=== PATIENT | female | born 1930 | race Caucasian/White ===

== ENCOUNTER → 2018-05-10 | Outpatient (CLI) | payer MEDICARE | END | disposition home or self-care (01) | LOC: PCVCCLINIC 14:59 | PROVIDERS: ATTEND Internal Medicine | DX: I34.0 Nonrheumatic mitral (valve) insufficiency (principal); I10 Essential (primary) hypertension; I63.9 Cerebral infarction, unspecified; I95.1 Orthostatic hypotension; E03.9 Hypothyroidism, unspecified | CPT/HCPCS: 93005; G0463 ==

== ENCOUNTER → 2018-11-01 | Outpatient (CLI) | payer MEDICARE ==
--- NOTE | 2018-11-01 16:57 | PCVCIMAG ---
APPROVED REPORT Study performed: 11/01/2018 14:07:17 EXAM: Comprehensive 2D, Doppler, and color-flow Echocardiogram Patient Location: Echo lab Status: routine BSA: 1.67 HR: 70 bpmBP: 110/70 mmHg Rhythm: NSR Other Information Study Quality: Adequate Risk Factors: Cardiac Risk Factors: HTN Indications CVA/TIA Syncope severe mitral regurgitation 2D Dimensions IVSd: 13.15 (7-11mm)LVOT Diam: 20.87 (18-24mm) LVDd: 50.52 mm PWd: 12.98 (7-11mm)Ascending Ao: 35.79 (22-36mm) LVDs: 35.54 (25-40mm) Left Atrium: 38.42 (27-40mm) Aortic Root: 34.39 mm LV Single Plane 4CH: 48.89 % LV Single Plane 2CH: 40.77 % Biplane EF: 43.7 % Volumes Left Atrial Volume (Systole) Single Plane 4CH: 90.19 mLSingle Plane 2CH: 86.66 mL LA ESV Index: 45.00 mL/m2 Aortic Valve AoV Peak Ray.: 1.85 m/s AO Peak Gr.: 13.64 mmHgLVOT Max P.37 mmHg AO Mean Gr.: 6.75 mmHgLVOT Mean P.18 mmHg AO V2 Mean: 1.20 m/sLVOT Max V: 0.77 m/s AO V2 VTI: 45.84 cmLVOT Mean V: 0.52 m/s JAVED (VTI): 1.24 [id number] V1 VTI: 16.67 cm JAVED Vmax: 1.43 cm2 SV (LVOT): 56.96 mL Mitral Valve E/A Ratio: 1.0 MV Decel. Time: 221.18 ms MV E Max Ray.: 0.58 m/s MV A Ray.: 0.59 m/s IVRT: 121.11 ms Pulmonary Valve PV Peak Ray.: 0.95 m/sPV Peak Gr.: 3.62 mmHg Pulmonary Vein P Vein S: 0.27 m/sP Vein A: 0.46 m/s P Vein D: 0.35 m/sP Vein A Dur.: 152.2 msec P Vein S/D Ratio: 0.77 Tricuspid Valve TR Peak Ray.: 2.29 m/s TR Peak Gr.: 20.94 mmHg Left Ventricle The left ventricle is normal size. There is normal LV segmental wall motion. Mild concentric left ventricular hypertrophy. Left ventricular systolic function is at the lower limits of normal LVEF is 50-55%. Grade I - abnormal relaxation pattern. Right Ventricle The right ventricle is normal size. The right ventricular systolic function is normal. Atria Left atrium is mildly dilated. The right atrium size is normal. Aortic Valve The aortic valve is moderately sclerotic. No aortic regurgitation is present. There is very mild aortic valvular stenosis. Calculated aortic valve area is 1.4 cm2 with maximum pressure gradient of 14 mmHg and mean pressure gradient of 7 mmHg. Mitral Valve Moderate mitral annular calcification, posterior leaflet prolapse Moderately severe mitral regurgitation No evidence of mitral valve stenosis. Tricuspid Valve The tricuspid valve is normal in structure. Mild tricuspid regurgitation with PAP of 28 mmHg. Pulmonic Valve The pulmonary valve is normal in structure. There is no pulmonic valvular regurgitation. Great Vessels The aortic root is normal in size. IVC is normal in size and collapses >50% with inspiration. Pericardium There is no pericardial effusion. There is no pleural effusion. <Conclusion> Left ventricular systolic function is at the lower limits of normal There is normal LV segmental wall motion. LVEF is 50-55%. Left atrium is mildly dilated. The aortic valve is moderately sclerotic. No aortic regurgitation or stenosis. There is very mild aortic valvular stenosis. Moderate mitral annular calcification, posterior leaflet prolapse. Moderately severe mitral regurgitation Mild tricuspid regurgitation with pulmonary artery pressure of 28 mmHg. There is no pericardial effusion.
== END | disposition home or self-care (01) ==
LOC: PCVCIMAG 13:45
PROVIDERS: ATTEND Internal Medicine
DX: I08.3 Combined rheumatic disorders of mitral, aortic and tricuspid valves (principal); I11.9 Hypertensive heart disease without heart failure; I95.1 Orthostatic hypotension; I63.9 Cerebral infarction, unspecified; E78.5 Hyperlipidemia, unspecified; E03.9 Hypothyroidism, unspecified; M81.0 Age-related osteoporosis without current pathological fracture; Z88.8 Allergy status to other drugs, medicaments and biological substances; Z79.899 Other long term (current) drug therapy
CPT/HCPCS: 36415; 80061; 93005; 93306; G0463